=== PATIENT | male | born 1965 | race Caucasian/White ===

== ENCOUNTER → 2022-03-24 | Outpatient (REF) | payer OTHER | LOC: M SFHCDERM 14:10 | PROVIDERS: ATTEND Nurse Practitioner Family | DX: L72.3 Sebaceous cyst (principal) ==

== ENCOUNTER → 2022-05-19 | Outpatient (REF) | payer OTHER | LOC: M LAB REF 16:31 | PROVIDERS: ATTEND Surgery | DX: L72.0 Epidermal cyst (principal) ==